=== PATIENT | male | born 1980 | race Caucasian/White ===

== ENCOUNTER 2017-11-05 22:37 | Emergency (ER) | payer OTHER, MEDICAID ==
[2017-11-05 22:46] VITALS: BP 160/93
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
== END 2017-11-05 23:10 | disposition home or self-care (01) ==
LOC: CED 22:37
DX: S56.901A Unspecified injury of unspecified muscles, fascia and tendons at forearm level, right arm, initial encounter (principal); S56.902A Unspecified injury of unspecified muscles, fascia and tendons at forearm level, left arm, initial encounter; F17.200 Nicotine dependence, unspecified, uncomplicated; V63.9XXA Unspecified occupant of heavy transport vehicle injured in collision with car, pick-up truck or van in traffic accident, initial encounter; Y92.488 Other paved roadways as the place of occurrence of the external cause